=== PATIENT | female | born 1980 | race Caucasian/White ===

== ENCOUNTER 2018-06-21 20:11 | Emergency (ER) | payer BC | END 2018-06-21 21:00 | disposition home or self-care (01) | LOC: SCSER 20:11 | DX: K02.9 Dental caries, unspecified (principal); F17.210 Nicotine dependence, cigarettes, uncomplicated; F41.9 Anxiety disorder, unspecified; M54.10 Radiculopathy, site unspecified; Z71.6 Tobacco abuse counseling; Z79.891 Long term (current) use of opiate analgesic; Z79.899 Other long term (current) drug therapy | CPT/HCPCS: 99406 ==

== ENCOUNTER 2018-07-03 08:42 | Outpatient (CLI) | payer BC ==
--- NOTE | 2018-07-03 10:59 | MRI ---
MRI BRAIN WITH AND WITHOUT CONTRAST MRI CRANIAL NERVES WITH AND WITHOUT CONTRAST: INDICATION: Left-side tracheal meralgia, left jaw claudication/pain. FINDINGS: There is normal size of the ventricular system. No acute territorial infarction, intracranial mass e ffect, or midline shift. There are no significant parenchymal signal abnormalities. Skull base flow voids are unremarkable. Thin section heavily T2 weighted skull base imaging at the level of the cranial nerves reveals no rissa dence of mass. No pathologic enhancement is seen at the level of Meckel's cave. There is susceptibi lity emanating from the patient's oral cavity which limits visualization of this region. IMPRESSION: 1. No acute intracranial abnormality. 2. No pathologic skull base enhancement or mass effect identified as etiology for patient's left-justin ed tic [place]. Correlate clinically. POS: ANYA
[2018-07-03] MEDS ORDERED: Gadobenate Dimeglumine 529 MG/1 ML (20ML VIAL) ONE (11:35)
== END 2018-07-03 08:43 | disposition home or self-care (01) ==
LOC: BICMRI 08:42
PROVIDERS: ATTEND Specialist
DX: G50.0 Trigeminal neuralgia (principal)
CPT/HCPCS: 70553; A9577